=== PATIENT | male | born 1970 | race Caucasian/White ===

== ENCOUNTER 2018-08-24 15:05 | Emergency (ER) | payer OTHER ==
[~2018-08-24] VITALS: Ht 182.9 cm; Wt 100.7 kg
== END 2018-08-24 17:40 | disposition home or self-care (01) ==
LOC: ER 15:05
DX: T22.212S Burn of second degree of left forearm, sequela (principal); L03.114 Cellulitis of left upper limb; X10.1XXS Contact with hot food, sequela